=== PATIENT | female | born 1980 | race Two or more races ===

== ENCOUNTER → 2024-10-10 | Emergency (ER) | payer OTHER ==
[~2024-10-10] VITALS: Ht 152.4 cm; Wt 53.5 kg
[~2024-10-10] MED LIST: RELAFEN DS1000 MG PO
[2024-10-10 10:09] VITALS: BP 116/77; O2SAT 98
== END | disposition left against medical advice (07) ==
LOC: ER 09:11
DX: Z53.21 Procedure and treatment not carried out due to patient leaving prior to being seen by health care provider (principal)